=== PATIENT | female | born 1940 | race Caucasian/White ===

== ENCOUNTER 2016-12-05 08:29 | Outpatient (CLI) | payer MEDICARE ==
[2016-12-05 09:20] LABS: ALT (SGPT) 11 U/L (8-55); AST (SGOT) 15 U/L (5-34); Albumin 4.3 g/dL (3.4-4.8); Alkaline Phosphatase 62 U/L (40-150); Anion Gap 14 mmol/L (10-20); BUN (Urea Nitrogen) 20 mg/dL (9.8-20.1); Bilirubin, Total 0.7 mg/dL (0.2-1.2); Calc. Creatinine Clearance 0 mL/min (70-130); Calcium 9.3 mg/dL (7.8-10.44); Carbon Dioxide 26 mmol/L (23-31); Cardiac Risk 3.2 (Less than 4.5); Chloride 107 mmol/L (98-107); Cholesterol 186 mg/dL (< 200 Desired); Estimated GFR-MDRD 82; Globulin 2.6 g/dL (2.4-3.5); Glucose 94 mg/dL (83-110); HDL Cholesterol 58 mg/dL (>60 Neg Risk); LDL Cholesterol, Calculated 92 mg/dL; Potassium 4.1 mmol/L (3.5-5.1); Protein, Total 6.9 g/dL (5.8-8.1); Sodium 143 mmol/L (136-145); Triglycerides 178 mg/dL (Less than 150)
[2016-12-05 09:36] LABS: Free T4 (Free Thyroxine) 0.82 ng/dL (0.70-1.48); Thyroid Stimulating Hormone 1.4944 uIU/mL (0.35-4.94); Vitamin D, 25 Hydroxy 32.7 ng/mL (> 30.0)
== END 2016-12-05 08:30 | disposition home or self-care (01) ==
LOC: BURLAB 08:29
PROVIDERS: ATTEND Internal Medicine
DX: E78.5 Hyperlipidemia, unspecified (principal); E55.9 Vitamin D deficiency, unspecified
CPT/HCPCS: 36415; 80053; 80061; 82306; 84439; 84443

== ENCOUNTER 2017-04-22 10:45 | Outpatient (CLI) | payer MEDICARE ==
--- NOTE | 2017-04-22 20:03 | RAD ---
LUMBAR SPINE THREE VIEWS: 04/22/17 Scoliosis is present convexed right. No fracture was seen. Degenerated disc with disc space narrowin g is present at L3-L4 and L4-L5. There is mild anterolisthesis of L4 on L5 that appears to be due to facet arthritis at this level. There were no areas of bony destruction. The SI joints appear normal . IMPRESSION: 1. Scoliosis. 2. Degenerative disc disease at particularly L3-L4 and L4-L5. MRI would be useful to assess man y potential neural impingement. POS: HOME
== END 2017-04-22 10:46 | disposition home or self-care (01) ==
LOC: BURRAD 10:45
PROVIDERS: ATTEND Family Medicine
DX: M54.32 Sciatica, left side (principal); M51.16 Intervertebral disc disorders with radiculopathy, lumbar region; M41.9 Scoliosis, unspecified
CPT/HCPCS: 72100

== ENCOUNTER 2017-04-22 11:25 | Emergency (ER) | payer MEDICARE ==
[2017-04-22 12:31] LABS: #Eosinphils 0.1 thou/uL (0.0-0.7); #Lymphocytes 2.1 thou/uL (1.20-3.40); #Monocytes 0.7 thou/uL (0.11-0.59); #Neutrophils 3.3 thou/uL (1.40-6.50); %Basophils 0.6 % (0.0-1.0); %Eosinophils 1.4 % (0.0-10.0); %Lymphocytes 33.6 % (21.0-51.0); %Neutrophils 53.4 % (42.0-75.0); Hemoglobin 14.8 g/dL (12.0-16.0); Mean Corpuscular Hemoglobin 29.7 pg (27.0-31.0); Mean Corpuscular Volume 92.7 fl (81.0-99.0); Mean Platelet Volume 8.5 fL (7.4-10.4); Platelet Count 177 thou/uL (130-400); RBC Distribution Width 11.5 % (11.5-14.5); Red Blood Cell (RBC) Count 4.98 mill/uL (4.20-5.40); White Blood Cell (WBC) Count 6.2 thou/uL (4.8-10.8)
[2017-04-22 12:44] LABS: ALT (SGPT) 12 U/L (8-55); AST (SGOT) 15 U/L (5-34); Albumin 4.5 g/dL (3.4-4.8); Alkaline Phosphatase 67 U/L (40-150); Anion Gap 12 mmol/L (10-20); BUN (Urea Nitrogen) 20 mg/dL (9.8-20.1); Bilirubin, Total 0.9 mg/dL (0.2-1.2); CKMB 2.3 ng/mL (0-6.6); Calc. Creatinine Clearance 0 mL/min (70-130); Calcium 10.2 mg/dL (7.8-10.44); Carbon Dioxide 28 mmol/L (23-31); Chloride 104 mmol/L (98-107); Estimated GFR-MDRD 78; Globulin 2.9 g/dL (2.4-3.5); Glucose 94 mg/dL (83-110); Potassium 4.1 mmol/L (3.5-5.1); Protein, Total 7.4 g/dL (6.0-8.3); Sodium 140 mmol/L (136-145); Troponin I Less than 0.010 ng/mL (< 0.028)
[2017-04-22 12:59] LABS: Bilirubin Negative (Negative); Blood, Urine Negative (Negative); Clarity Clear (Clear); Glucose, Urine (Dipstick) Negative (Negative); Leukocyte Small (Negative); Nitrite Negative (Negative); Protein, Urine (Dipstick) Negative (Neg-Trace); Urobilinogen 0.2 mg/dL (0.2-1.0)
[2017-04-22] MEDS ORDERED: Meclizine HCl 25 MG TAB ONE (13:04)
[2017-04-22 13:10] LABS: Bacteria/HPF 1+ HPF (None Seen); RBC/HPF 0-3 HPF (0-3); Squamous Epithelial 0-3 HPF (0-3); WBC/HPF 0-3 HPF (0-3)
== END 2017-04-22 13:23 | disposition home or self-care (01) ==
LOC: BURERS 11:25
DX: I95.1 Orthostatic hypotension (principal); H83.09 Labyrinthitis, unspecified ear; E78.5 Hyperlipidemia, unspecified; Z85.3 Personal history of malignant neoplasm of breast
CPT/HCPCS: 80053; 81003; 81015; 82553; 84484; 85025; 94760

== ENCOUNTER 2019-02-09 07:49 | Emergency (ER) | payer MEDICARE, OTHER ==
--- NOTE | 2019-02-09 19:36 | RAD ---
THORACIC SPINE THREE VIEWS: 02/09/19 No fracture or area of bony destruction was seen. Degenerative changes are fairly prominent in the mi d to lower thoracic spine consisting of anterior osteophytes. No bony destructive lesions were seen. The visible portions of the lungs were clear. A right IJ catheter is in place. IMPRESSION: Arthritic changes as noted but no acute bony finding. POS: HOME
== END 2019-02-09 09:07 | disposition home or self-care (01) ==
LOC: BURERS 07:49
DX: M54.6 Pain in thoracic spine (principal)
CPT/HCPCS: 72072; 93005

== ENCOUNTER 2021-04-13 00:58 | Emergency (ER) | payer MEDICARE, OTHER ==
[2021-04-13 01:37] LABS: Bilirubin Moderate (Negative); Blood, Urine Large (Negative); Clarity Cloudy (Clear); Glucose, Urine (Dipstick) Negative (Negative); Ketone, Urine Negative (Negative); Leukocyte Small (Negative); Nitrite Negative (Negative); Protein, Urine (Dipstick) > or equal to 300 mg/dL (Neg-Trace)
[2021-04-13 01:38] LABS: pH, Urine Greater/Equal 9.0 (5.0-9.0)
[2021-04-13 01:44] LABS: #Basophils 0.1 thou/uL (0.0-0.2); #Eosinphils 0.4 thou/uL (0.0-0.7); #Lymphocytes 2.3 thou/uL (1.20-3.40); #Monocytes 0.7 thou/uL (0.11-0.59); #Neutrophils 2.9 thou/uL (1.40-6.50); %Eosinophils 6.3 % (0.0-10.0); %Lymphocytes 35.3 % (21.0-51.0); %Monocytes 11.3 % (0.0-10.0); %Neutrophils 46.1 % (42.0-75.0); Hemoglobin 12.8 g/dL (12.0-16.0); Mean Corpuscular HGB CONC 33.9 g/dL (32.0-36.0); Mean Corpuscular Hemoglobin 31.3 pg (27.0-31.0); Mean Corpuscular Volume 92.2 fL (78.0-98.0); Mean Platelet Volume 8.4 fL (7.4-10.4); Platelet Count 229 thou/uL (130-400); RBC Distribution Width 11.7 % (11.5-14.5); White Blood Cell (WBC) Count 6.4 thou/uL (4.8-10.8)
[2021-04-13 01:49] LABS: INR-International Normal Ratio 1.1; Prothrombin Time 13.9 sec (12.0-14.7)
[2021-04-13 01:53] LABS: Squamous Epithelial 0-3 HPF (0-3)
[2021-04-13 01:54] LABS: Bacteria/HPF 3+ HPF (None Seen); Yeast-Budding None Seen HPF (None Seen)
[2021-04-13 01:55] LABS: Mucous/LPF 2+ LPF (<2+); Triple Phosphate Crystal 3+ HPF (None Seen)
[2021-04-13 01:56] LABS: ALT (SGPT) 23 U/L (8-55); AST (SGOT) 12 U/L (5-34); Albumin 3.5 g/dL (3.4-4.8); Alkaline Phosphatase 77 U/L (40-110); Anion Gap 12 mmol/L (10-20); BUN (Urea Nitrogen) 27 mg/dL (9.8-20.1); Bilirubin, Total 0.2 mg/dL (0.2-1.2); Calc. Creatinine Clearance 0 mL/min (70-130); Calcium 9.1 mg/dL (7.8-10.44); Carbon Dioxide 25 mmol/L (23-31); Chloride 109 mmol/L (98-107); Globulin 2.3 g/dL (2.4-3.5); Glucose 112 mg/dL (83-110); Protein, Total 5.8 g/dL (5.8-8.1); Sodium 142 mmol/L (136-145)
[2021-04-13] MEDS ORDERED: cefTRIAXone\\ROCEPHIN 1 GM VIAL ONE (02:45)
[2021-04-13] MEDS ORDERED: Sterile Water 10 ML ONE (02:45)
== END 2021-04-13 04:16 ==
LOC: BURERS 00:58
DX: N39.0 Urinary tract infection, site not specified (principal); R31.9 Hematuria, unspecified; Z79.899 Other long term (current) drug therapy
CPT/HCPCS: 36415; 80053; 81003; 81015; 85025; 85610; 87086; 96372; 99283; J0696

== ENCOUNTER 2021-06-18 09:59 | Emergency (ER) | payer MEDICARE, OTHER ==
[2021-06-18] MEDS ORDERED: Bacitracin 1 PK ONE (11:06)
[2021-06-18] MEDS ORDERED: Acetaminophen 500 MG TAB ONE (11:06)
== END 2021-06-18 12:30 | disposition home or self-care (01) ==
LOC: BURERS 09:59
DX: S83.92XA Sprain of unspecified site of left knee, initial encounter (principal); S00.31XA Abrasion of nose, initial encounter; M25.512 Pain in left shoulder; W05.0XXA Fall from non-moving wheelchair, initial encounter; Z79.899 Other long term (current) drug therapy; F03.90 Unspecified dementia, unspecified severity, without behavioral disturbance, psychotic disturbance, mood disturbance, and anxiety
CPT/HCPCS: 70450; 70486; 71045; 72125